=== PATIENT | female | born 1990 | race Caucasian/White ===

== ENCOUNTER → 2018-06-21 | Outpatient (CLI) | payer BC ==
[2018-06-21 18:31] LABS: BASO # 0.1 10^3/uL (0.0-0.2); BASO % 0.3 % (0.0-1.0); EOS # 0.3 10^3/uL (0.0-0.50); EOS % 1.9 % (0.0-3.0); HEMATOCRIT 40.3 % (36.0-47.0); HEMOGLOBIN 13.8 g/dl (12.0-15.5); LYMPH # 1.7 10^3/uL (1.5-6.5); LYMPH % 11.1 % (24.0-44.0); MEAN CORPUSCULAR HEMOGLOBIN 31.3 pg (27.0-33.0); MEAN CORPUSCULAR HGB CONC 34.2 g/dl (32.0-36.5); MEAN CORPUSCULAR VOLUME 91.4 fl (80.0-96.0); MONO # 0.7 10^3/uL (0.0-0.8); MONO % 4.7 % (0.0-5.0); NEUTROPHILS # 12.6 10^3/uL (1.8-7.7); NEUTROPHILS % 81.4 % (36.0-66.0); PLATELET COUNT, AUTOMATED 320 10^3/uL (150-450); RED BLOOD COUNT 4.41 10^6/uL (4.00-5.40); WHITE BLOOD COUNT 15.6 10^3/uL (4.0-10.0)
[2018-06-21 19:40] LABS: CHLAMYDIA DNA AMPLIFICATION NEGATIVE (NEGATIVE); GC DNA AMPLIFICATION NEGATIVE (NEGATIVE)
[2018-06-22 12:48] LABS: HIV 1&2 SCREEN CENTAUR NEGATIVE (NEGATIVE); RUBELLA IgG QUALITATIVE IMMUNE (IMMUNE)
== END ==
LOC: M SMT 13:46
PROVIDERS: ATTEND Advanced Practice Midwife
DX: Z36.89 Encounter for other specified antenatal screening (principal)

== ENCOUNTER → 2018-08-10 | Outpatient (CLI) | payer BC ==
--- NOTE | 2018-08-10 15:36 | REP ---
Clinical: Anatomical evaluation. Comparison: None . Findings: Examination demonstrates a single live intrauterine in breech presentation. motion is identified by technologist. Placenta is noted posterior and grade 1 with complete placenta previa. Amniotic fluid volume is normal. Cervix measures 3.6 cm in length and appears closed. No evidence for nuchal cord. Gestational age by LMP 19 weeks 3 days with PRABHAKAR 01/01/2019 . Gestational age by current measurements 18 weeks 6 days with PRABAHKAR 01/05/2019 . FHR equals 153 beats per minute. BPD 4.3 cm 19 weeks 0 days HC 15.4 cm 18 weeks 3 days AC 13.3 cm 18 weeks 6 days FL 3.1 cm 19 weeks 3 days HL 2.9 cm 19 weeks 2 days HC/AC ratio 1.15 Estimated weight 271 grams ( 34th percentile). Anatomical assessment demonstrates normal structures including cranium, choroid plexus, cavum, cerebellum/posterior fossa, facial features, lungs, diaphragm, stomach, cord insertion/three-vessel cord, kidneys/bladder, spine, and extremities. Impression: 1. Single live intrauterine in breech presentation. 2. Posterior placenta with complete placenta previa and suggestions for velamentous cord insertion. 3. Limited evaluation of the heart/ventricular outflow tracts. Electronically Signed by Prabhjot Lr MD 08/10/2018 03:27 P
== END ==
LOC: M SMT 13:39
PROVIDERS: ATTEND Advanced Practice Midwife
DX: Z36.89 Encounter for other specified antenatal screening (principal); Z3A.18 18 weeks gestation of pregnancy

== ENCOUNTER → 2018-09-06 | Outpatient (CLI) | payer BC ==
--- NOTE | 2018-09-07 03:00 | REP ---
Clinical: Anatomical evaluation. Comparison: 08/10/2018 . Findings: Examination demonstrates a single live intrauterine in breech presentation. motion is identified by technologist. Placenta is noted posterior and grade 0 with continued evidence for complete placenta previa and suggestions for possible velamentous cord insertion. Amniotic fluid volume is normal. Cervix measures 3.1 cm in length and appears closed. No evidence for nuchal cord. Gestational age by LMP 23 weeks 2 days with PRABHAKAR 01/01/2019 . Gestational age by current measurements 22 weeks 4 day with PRABHAKAR 01/06/2019 . FHR equals 158 beats per minute. Estimated weight 525 grams ( 27 percentile). Anatomical assessment demonstrates normal structures including cranium, choroid plexus, cavum, cerebellum/posterior fossa, facial features, lungs, ventricular outflow tracts, diaphragm, stomach, cord insertion/three-vessel cord, kidneys/bladder, spine, and extremities. Echogenic foci within the left cardiac ventricle likely prominent chordae tendineae. Minimal renal pelviectasis within normal range for age. Impression: 1. Posterior placenta with complete placenta previa and suggestions for velamentous cord insertion. 2. Presumed prominent chordae tendineae. Electronically Signed by Prabhjot Lr MD 09/07/2018 02:51 A
== END ==
LOC: M RAD 15:52
PROVIDERS: ATTEND Advanced Practice Midwife
DX: Z34.80 Encounter for supervision of other normal pregnancy, unspecified trimester (principal); Z3A.22 22 weeks gestation of pregnancy

== ENCOUNTER → 2018-10-11 | Outpatient (CLI) | payer BC ==
[2018-10-11 13:59] LABS: HEMATOCRIT 35.4 % (36.0-47.0); HEMOGLOBIN 11.7 g/dl (12.0-15.5); MEAN CORPUSCULAR HEMOGLOBIN 31.4 pg (27.0-33.0); MEAN CORPUSCULAR HGB CONC 33.1 g/dl (32.0-36.5); MEAN CORPUSCULAR VOLUME 94.9 fl (80.0-96.0); PLATELET COUNT, AUTOMATED 289 10^3/uL (150-450); RED BLOOD COUNT 3.73 10^6/uL (4.00-5.40); WHITE BLOOD COUNT 17.5 10^3/uL (4.0-10.0)
== END ==
LOC: M SMT 10:06
PROVIDERS: ATTEND Advanced Practice Midwife
DX: O44.02 Complete placenta previa NOS or without hemorrhage, second trimester (principal); Z3A.00 Weeks of gestation of pregnancy not specified

== ENCOUNTER → 2018-10-25 | Outpatient (CLI) | payer BC | LOC: M LAB 07:02 | PROVIDERS: ATTEND Advanced Practice Midwife | DX: O44.02 Complete placenta previa NOS or without hemorrhage, second trimester (principal); Z3A.00 Weeks of gestation of pregnancy not specified ==

== ENCOUNTER → 2018-11-23 | Outpatient (CLI) | payer BC ==
--- NOTE | 2018-11-23 15:05 | REP ---
Obstetric sonography: History: growth study. Third trimester. Findings: Scanning through the gravid uterus demonstrates a viable single intrauterine gestation in a cephalic lie. motion is observed and heart rate is recorded at 144 beats per minute. A posterior left-sided placenta is seen grade 1 without evidence of abruption but with evidence of complete placenta previa. Question velamentous versus marginal cord insertion. Amniotic fluid is subjectively normal. Closed cervical length viewed transabdominally is 3.2 cm. No extrauterine abnormalities observed. There has been appropriate interval growth. Umbilical cord is seen draping across the shoulders. The following anatomic structures are identified again and felt to be unremarkable: cranium, choroid plexus, cavum, lungs, four-chamber heart, diaphragm, left-sided stomach, abdominal wall cord insertion, three-vessel cord, kidneys and bladder, spine. Biometry chart: BPD 8.1 cm = 32 weeks 2 days HC 29.5 cm = 32 weeks 4 days AC 29.2 cm = 33 weeks 1 day FL 6.4 cm = 32 weeks 6 days HL 5.5 cm = 32 weeks 0 days HC/AC ratio normal 1.01. Cephalic index normal 0.76. Estimated weight 2087 grams, 4 pounds 9 ounces, 21st percentile for 34 weeks 3 days. PHILLY 15.8 cm. S/D ratio 2.41 Impression: Viable single intrauterine gestation at 32 weeks 4 days by today's composite sonographic criteria. Expected gestational age estimate based on prior sonography is 33 weeks 6 days. PRABHAKAR by prior sonography January 05, 2019. Complete placenta previa again noted. Electronically Signed by Cy Garay MD 11/23/2018 04:53 P
== END ==
LOC: M RAD 12:37
PROVIDERS: ATTEND Specialist
DX: Z34.82 Encounter for supervision of other normal pregnancy, second trimester (principal)

== ENCOUNTER → 2018-12-06 | Outpatient (REF) | payer BC ==
[~2018-12-06] MED LIST: PRENTAB53 PO
== END ==
LOC: M LAB REF 17:31
PROVIDERS: ATTEND Obstetrics & Gynecology
DX: O24.419 Gestational diabetes mellitus in pregnancy, unspecified control (principal)

== ENCOUNTER 2018-12-20 05:25 | Inpatient (IN) | payer BC ==
[~2018-12-20] VITALS: Ht 160 cm; Wt 58.5 kg
[2018-12-20] VITALS (9 sets, daily range): BP systolic 111–126; BP diastolic 58–76
[2018-12-20] MEDS ORDERED: BICITRA 30ML SOLN UDC PO SCH (06:00)
[2018-12-20] MEDS ORDERED: LR 800 ML IV ONE (06:00)
[2018-12-20] MEDS ORDERED: LR 1,000 ML IV SCH ×3 (06:00→11:07)
[2018-12-20] MEDS ORDERED: OXYC1TAB23 PO (07:24)
[2018-12-20] MEDS ORDERED: IBUP-1022 PO (07:25)
[2018-12-20] MEDS ORDERED: NALOXONE INJ 0.4 MG/1 ML VIAL (J2310) IV PRN ×2 (07:47)
[2018-12-20] MEDS ORDERED: diphenhydrAMINE INJ 50MG/ML VIAL (J1200) IV PRN (07:47)
[2018-12-20] MEDS ORDERED: METOCLOPRAMIDE INJ 10MG/2ML VIAL (J2765) IV PRN (07:47)
[2018-12-20] MEDS ORDERED: NALBUPHINE HCL 10 MG/ML AMP (J2300) IV PRN ×2 (07:47→09:30)
[2018-12-20] MEDS ORDERED: ONDANSETRON 4MG/2ML VIAL (J2405) IV PRN ×2 (07:47→09:30)
[2018-12-20] MEDS ORDERED: BUPIVACAINE/DEXTROSE 0.75% 2 ML AMP As Ordered ONE (07:54)
[2018-12-20] MEDS ORDERED: MORPHINE PRES-FREE INJ 10 MG/10 ML VIAL (J2274) As Ordered ONE (07:54)
[2018-12-20] MEDS ORDERED: OXYTOCIN INJ 10 UNITS/ML VIAL (J2590) As Ordered ONE (07:54)
[2018-12-20 08:12] LABS: HEMATOCRIT 41.7 % (36.0-47.0); HEMOGLOBIN 14.1 g/dl (12.0-15.5); MEAN CORPUSCULAR HEMOGLOBIN 31.5 pg (27.0-33.0); MEAN CORPUSCULAR HGB CONC 33.8 g/dl (32.0-36.5); MEAN CORPUSCULAR VOLUME 93.3 fl (80.0-96.0); RED BLOOD COUNT 4.47 10^6/uL (4.00-5.40); WHITE BLOOD COUNT 13.5 10^3/uL (4.0-10.0)
[2018-12-20] MEDS ORDERED: OXYTOCIN DRIP 30 UNITS in APPROPRIATE DILUENT 1 EA IV SCH (08:38)
[2018-12-20] MEDS ORDERED: MEASLES,MUMPS,RUBELLA VACCINE INJ (MMR-II) (90707) SC SCH (08:45)
[2018-12-20] MEDS ORDERED: MOM 30ML SUSPENSION UDC PO PRN (08:45)
[2018-12-20] MEDS ORDERED: PROMETHAZINE 25 MG TAB PO PRN (08:45)
[2018-12-20] MEDS ORDERED: PERCOCET 5MG/325MG TAB PO PRN ×2 (08:45)
[2018-12-20] MEDS ORDERED: RHOGAM 300 MCG (1500 IU) INJ (J2790) IM SCH (08:45)
[2018-12-20 09:00] LABS: PLATELET COUNT, AUTOMATED 260 10^3/uL (150-450)
[2018-12-20] MEDS: PRENATAL VITAMINS CHEWABLE TABLET PO SCH (09:00)
[2018-12-20] MEDS: DOCUSATE SODIUM 100 MG CAP PO SCH ×2 (09:00→22:41)
[2018-12-20] MEDS ORDERED: MEPERIDINE INJ 25 MG/ML VIAL (J2175) IV PRN (09:30)
[2018-12-20] MEDS ORDERED: fentaNYL 100 MCG/2 ML INJECTION (J3010) IV PRN (09:30)
[2018-12-20] MEDS ORDERED: KETOROLAC 30 MG/ML VIAL (J1885) IV PRN (09:30)
[2018-12-20] MEDS ORDERED: KETOROLAC 30 MG/ML VIAL (J1885) As Ordered ONE (09:34)
[2018-12-20] MEDS: KETOROLAC 30 MG/ML VIAL (J1885) IV SCH ×2 (16:18→22:42)
[2018-12-21 02:09] VITALS: BP 105/59
[2018-12-21] MEDS: KETOROLAC 30 MG/ML VIAL (J1885) IV SCH (04:50)
[2018-12-21 06:10] VITALS: BP 109/61
[2018-12-21 07:50] LABS: HEMATOCRIT 31.1 % (36.0-47.0); MEAN CORPUSCULAR HEMOGLOBIN 31.8 pg (27.0-33.0); MEAN CORPUSCULAR HGB CONC 34.1 g/dl (32.0-36.5); MEAN CORPUSCULAR VOLUME 93.4 fl (80.0-96.0); PLATELET COUNT, AUTOMATED 213 10^3/uL (150-450); RED BLOOD COUNT 3.33 10^6/uL (4.00-5.40); WHITE BLOOD COUNT 16.8 10^3/uL (4.0-10.0)
[2018-12-21 07:53] LABS: HEMOGLOBIN 10.6 g/dl (12.0-15.5)
[2018-12-21] MEDS: DOCUSATE SODIUM 100 MG CAP PO SCH ×2 (08:06→20:24)
[2018-12-21] MEDS: PRENATAL VITAMINS CHEWABLE TABLET PO SCH (08:06)
--- NOTE | 2018-12-21 09:28 | IPNPDOC ---
Text Note Date of Service The patient was seen on 12/21/18. NOTE PO #1 Feels well. Adequate pain management. Tolerating small amount regular diet. Voiding and passing flatus VSS, afebrile, normotensive Breasts soft, nipples intact Fundus firm, NT Dressing dry and intact Lochia rubra light without odor PO #1 Routine care, anticipate D/C in am VS,Fishbone, I+O VS, Fishbone, I+O Laboratory Tests 12/21/18 06:46 Red Blood Count 3.33 L, Mean Corpuscular Volume 93.4, Mean Corpuscular Hemoglobin 31.8, Mean Corpuscular Hemoglobin Concent 34.1, Red Cell Distribution Width 12.2 Vital Signs Date Time Temp Pulse Resp B/P (MAP) Pulse Ox O2 Delivery O2 Flow Rate FiO2 12/21/18 06:10 98.0 68 18 109/61 (77) 97 I&O- Last 24 Hours up to 6 AM 12/21/18 06:00 Intake Total 2050 ml Output Total 2250 ml Balance -200 ml Naa Underwood CNM Dec 21, 2018 09:28
[2018-12-21 10:00] VITALS: BP 104/58
[2018-12-21] MEDS: IBUPROFEN 800 MG TAB PO SCH ×2 (11:47→20:23)
[2018-12-21] MEDS ORDERED: OMEPRAZOLE 20 MG CAP PO ONE (15:00)
[2018-12-21 18:00] VITALS: BP 111/56
[2018-12-22] MEDS: IBUPROFEN 800 MG TAB PO SCH ×2 (04:00→13:00)
[2018-12-22 06:00] VITALS: BP 106/56
[2018-12-22 08:53] VITALS: BP 106/56
[2018-12-22] MEDS: DOCUSATE SODIUM 100 MG CAP PO SCH (09:09)
[2018-12-22] MEDS: PRENATAL VITAMINS CHEWABLE TABLET PO SCH (09:09)
--- NOTE | 2018-12-24 11:06 | RO ---
DATE OF OPERATION: 12/20/2018 PREOPERATIVE DIAGNOSIS: 37-0/7 weeks' gestation, placenta previa. POSTOPERATIVE DIAGNOSIS: 37-0/7 weeks' gestation, placenta previa. PROCEDURE: Primary low transverse section. SURGEON: Lance Padilla MD CONDUIT INSTALLER: Rosemary Light MD ANESTHESIA: Spinal. ESTIMATED BLOOD LOSS: 600 mL. URINE OUTPUT: 150 mL. FINDINGS: 6-pound 11-ounce female , vertex position, posterior placenta previa present. Normal uterus, fallopian tubes, and ovaries. DESCRIPTION OF PROCEDURE: Operative summary: The patient taken to the operating room, where spinal anesthesia was induced. She was prepped and draped in sterile fashion in the supine position. A William catheter was placed. A Pfannenstiel skin incision was made with the scalpel and carried through to the fascia. The fascia was nicked and extended. The fascia was dissected off the rectus muscles. The peritoneal cavity was entered. The bladder flap was created. A curvilinear incision was made in the lower uterine segment until meconium-stained fluid was noted. This was extended manually. The was delivered with a single use of the vacuum extractor without difficulty. The cord was doubly clamped and cut. The baby was handed off to the awaiting nurses. The placenta was expressed. The uterus was exteriorized and cleared of clots and debris. The uterine incision was closed with 0 Vicryl in a running locked fashion. A second imbricating layer of 0 Vicryl was placed. The uterus placed back in the abdominal cavity. The peritoneum was closed with 2-0 Vicryl in a running fashion. The fascia was closed with 0 Vicryl. The deep layer was irrigated and closed with 2-0 chromic. The skin was closed with 4-0 Monocryl subcuticular sutures. Sponge, instrument, and needle counts were correct. Rosemary Light MD, assisted throughout the procedure. He helped create each layer of the incision, as well as hysterotomy. He helped wit expulsion of the fetus and closure of all subsequent layers.
--- NOTE | 2018-12-24 19:13 | DSES ---
DATE OF ADMISSION: 12/20/2018 DATE OF DISCHARGE: 12/22/2018 HISTORY: A 28-year-old (G) 1 female at 37 and 0/7 weeks gestation who presents for primary section with the indication of posterior placenta previa. The patient had no bleeding during her . HOSPITAL COURSE: On 12/20/2018, the patient underwent primary low transverse section for a viable female infant. There were no complications. Placenta previa was confirmed at the time of surgery. Her postoperative course was unremarkable. She had adequate return of bladder and bowel function. Her postoperative hemoglobin was 10.6 grams/dL. She was deemed stable for discharge on postoperative day number two. ADMISSION DIAGNOSES: 1. at 37 weeks. 2. Placenta previa. DISCHARGE DIAGNOSIS: Delivered. PROCEDURE: Primary low transverse section. DISPOSITION: The patient will followup with Dr. Padilla in two weeks. Instructions reviewed.
== END 2018-12-22 14:20 | disposition home or self-care (01) | DRG 540 ==
LOC: M LDI 05:25 → M OBS 09:50
PROVIDERS: ADMIT Specialist; ATTEND Specialist
PROC: 10D00Z1 Extraction of Products of Conception, Low, Open Approach (ICD-10-PCS; principal; 2018-12-20 07:30)
DX: O44.03 Complete placenta previa NOS or without hemorrhage, third trimester (principal); Z3A.37 37 weeks gestation of pregnancy; Z37.0 Single live birth